=== PATIENT | male | born 1950 | race Caucasian/White ===

== ENCOUNTER → 2021-05-10 17:05 | Outpatient (CLI) | payer MEDICARE, SELFPAY ==
[2021-05-10 17:51] LABS: CREATININE FINGERSTICK 0.8 mg/dL (0.70-1.30); EGFR FINGERSTICK > 60.0000 mL/min (>60)
--- NOTE | 2021-05-10 18:15 | MRI_ITS ---
We are attempting to reach an attending provider to discuss findings. An addendum with communication details will be sent when the communication is complete. STUDY: MRI BRAIN WITH AND WITHOUT CONTRAST REASON FOR EXAM: Male, 70 years old. SUDDEN HEaRING LOSS LEFT EaR TECHNIQUE: Full field of view sagittal T1, axial T2, FLAIR, T1, diffusion-weighted imaging with ADC map as well as axial T1 postcontrast enhanced images are obtained. Smaller [id number] axial T2-weighted images, high-resolution 3-D fiesta axial images and axial and coronal T1 fat saturated images through the internal auditory canals are obtained. 15ml Dotarem via IV was administered for the contrast portion of the examination. COMPARISON: None. FINDINGS: Right posterior parietal ventricular peritoneal shunt enters the right lateral ventricle at the level of the atrium and crosses midline near the foramen of monro with the tip in the anterior horn of the left lateral ventricle. Small amount of increased T2 and FLAIR signal in the parenchyma around the shunt tubing. In the right frontal lobe there is a high T2, low T1 and FLAIR signal tract descending into the right lateral ventricle suggesting prior location of ventricular shunt. There is moderate area of surrounding increased T2 and FLAIR signal right frontal lobe around the shunt tract which shows restricted diffusion but no rim enhancement. There is increased T2 and FLAIR signal in the straight gyrus of the right and left frontal lobes, in the anterior cranial fossa. Restricted diffusion is seen in this area. No rim enhancement. Bilobed contour left globe suggesting scleral band and signal changes in the retina suggesting retinal surgery. There is diffuse pachymeningeal thickening and hyperenhancement suggesting postoperative changes and/or intracranial hypotension. Internal auditory canals and traversing intracranial nerves are normal in appearance with no mass lesion. Nerve impingement or enhancement. Note that the right internal auditory canals and inner ear structures are not well visualized on the fat saturated images limiting assessment. Normal T2 flow void seen in the major intracranial vessels. MRI/Brain W/WO Contrast IMPRESSION: Right posterior parietal ventricular shunt tubing as above. Right frontal lobe shunt tract surrounded by area of increased T2 and FLAIR signal showing restricted diffusion. Similar restricted diffusion in the straight gyri of the right and left frontal lobes. Atypical distribution for ischemia which is not excluded. No rim enhancement to suggest abscess Smooth, diffuse pachymeningeal thickening and hyperenhancement suggesting postoperative changes and/or intracranial hypotension. Infectious or neoplastic etiology is felt to be less likely. Left orbit postsurgical changes. Normal MRI appearance of the left internal auditory canal with no findings to explain reported hearing loss. Neurosurgical consultation is recommended. Electronically Signed: Trung Durant DO at 20:32 EST Tel , Service support ,
== END ==
PROVIDERS: PCP Internal Medicine; Visit Provider Otolaryngology
DX: H90.42 Sensorineural hearing loss, unilateral, left ear, with unrestricted hearing on the contralateral side (principal)
CPT/HCPCS: 70553; A9575